=== PATIENT | male | born 2000 | race Two or more races ===

== ENCOUNTER 2022-04-27 17:13 | Emergency (ER) | payer MEDICAID ==
[~2022-04-27] VITALS: Ht 177.8 cm; Wt 56.2 kg
--- NOTE | 2022-04-27 17:37 | NUR ---
TO ER BED 15, BIB RA 878,[facility] DETAINED HIM FOR RUNNING IN & OUT OF TRAFFIC,DENIES USING DRUGS, AAO2, BREATHING EVEN AND NON LABORED, AWAITING MD ORDERS
--- NOTE | 2022-04-27 18:10 | NUR ---
URINE COLLECTED AND SENT TO LAB
[2022-04-27 18:14] LABS: BASOPHILS % (AUTO) 0.3 % (0.0-2.0); HEMATOCRIT 40 % (39-51); HEMOGLOBIN 13.6 g/dL (13.5-17.5); LYMPHOCYTES # (AUTO) 1.5 K/uL (0.8-4.8); LYMPHOCYTES % (AUTO) 16.8 % (20.0-44.0); MEAN CORPUSCULAR HGB CONC 34 g/dl (31.0-36.0); MEAN CORPUSCULAR VOLUME 85 fL (80-96); MONOCYTES # (AUTO) 0.7 K/uL (0.1-1.30); MONOCYTES % (AUTO) 8.1 % (2.0-12.0); NEUTROPHILS # (AUTO) 6.8 K/uL (1.8-8.9); NEUTROPHILS % (AUTO) 74.8 % (43.0-81.0); PLATELET COUNT (AUTO) 337 K/uL (150-450); RED BLOOD CELL COUNT(AUTO) 4.67 MIL/uL (4.5-6.0); WHITE BLOOD COUNT (AUTO) 9.1 K/uL (4.3-11.0)
[2022-04-27 18:23] LABS: CALCIUM, SERUM 9.7 mg/dL (8.5-10.1); CARBON DIOXIDE 25 mmol/L (21-32); CHLORIDE 105 mmol/L (98-107); CREATININE 1.3 mg/dL (0.6-1.3); GLUCOSE 83 mg/dL (74-106); POTASSIUM 3.3 mmol/L (3.5-5.1); SODIUM SERUM 145 mmol/L (136-145); UREA NITROGEN, BLOOD 19 mg/dL (7-18)
[2022-04-27 18:29] LABS: ALANINE AMINOTRANSFERASE 33 U/L (12-78); ALCOHOL, BLOOD < 3 mg/dL (0-0); ALKALINE PHOSPHATASE 51 U/L (46-116); ASPARTATE AMINOTRANSFERASE 39 U/L (15-37); BILIRUBIN,DIRECT 0.4 mg/dL (0.0-0.2); TOTAL PROTEIN, SERUM 8.2 g/dL (6.4-8.2)
[2022-04-27 18:30] LABS: ACETAMINOPHEN 0 ug/ml (10-30)
[2022-04-27] MEDS ORDERED: POTASSIUM CHLORIDE 20 MEQ TAB.PRT.SR PO ONE ×2 (19:00→22:02)
--- NOTE | 2022-04-27 19:20 | NUR ---
covid swab collected and sent to lab.
[2022-04-27 19:23] LABS: BILIRUBIN,URINE MODERATE (NEGATIVE); COLOR,URINE YELLOW (YELLOW); LEUKOCYTE ESTERASE ,URINE NEGATIVE (NEGATIVE); NITRITE, URINE NEGATIVE (NEGATIVE); PROTEIN,URINE 30 mg/dl (NEGATIVE); UGLUCOSE NEGATIVE (NEGATIVE)
[2022-04-27 19:29] LABS: BACTERIA,URINE 1+ /HPF (None Seen); MUCUS,URINE Moderate /LPF (None Seen); RBC,URINE 0-2 /HPF (0-2); WBC,URINE 0-2 /HPF (0-3)
[2022-04-27] MEDS ORDERED: OLANZAPINE 10 MG VIAL IM ONE (22:59)
[2022-04-27] MEDS: OLANZAPINE 10 MG VIAL IM SCH (23:08)
--- NOTE | 2022-04-28 04:08 | NUR ---
MARY MOTHER [phone]
[2022-04-28] MEDS ORDERED: OLANZAPINE 10 MG VIAL IM ONE ×2 (11:00→18:08)
[2022-04-28] MEDS: OLANZAPINE 10 MG VIAL IM SCH ×2 (11:17→18:15)
--- NOTE | 2022-04-29 06:00 | NUR ---
PATIENT IN BEDSIDE, VSS, NO ACUTE DISTRESS NOTED. SITTER AT BEDSIDE. WILL CONTINUE TO MONITOR.
--- NOTE | 2022-04-29 08:49 | NUR ---
meal tray provided. pt verbally responsive. vitals stable. sitter at bedside.
[2022-04-29] MEDS ORDERED: OLANZAPINE 10 MG VIAL IM ONE ×2 (09:22→17:30)
[2022-04-29] MEDS: OLANZAPINE 10 MG VIAL IM SCH ×2 (09:28→17:35)
--- NOTE | 2022-04-29 23:32 | NUR ---
PATIENT IN BED RESTING, SITTER AT BEDSIDE. PT VSS, NO ACUTE DISTRESS NOTED. WILL CONTINUE TO MONITOR.
[2022-04-30] MEDS ORDERED: OLANZAPINE 10 MG VIAL IM ONE (10:37)
[2022-04-30] MEDS: OLANZAPINE 10 MG VIAL IM SCH (10:38)
--- NOTE | 2022-04-30 10:54 | NUR ---
REFERRALS: REFERRALS SENT TO [facility] ([phone]), (F:[phone]). [facility] ([phone]), (F:[phone]) [facility] (P:[phone]) (F:[phone])
--- NOTE | 2022-04-30 11:54 | NUR ---
patient is accepted at [facility] spoke to Rocio REEVES call for report after 3pm [phone] Leary Accepting MD. [facility] unit room 253A.
--- NOTE | 2022-04-30 12:28 | NUR ---
[facility] CALLED FOR TRANSPORT ASKED FOR ETA OF 1500.
--- NOTE | 2022-04-30 14:55 | NUR ---
report given to dario kenyon at [facility]. awaiting transport ambulance.
[2022-04-30 15:50] VITALS: BP 119/77
--- NOTE | 2022-04-30 15:56 | NUR ---
Patient picked up by private ambulance going to [facility] psych unit in no distress, on [id number].
== END 2022-04-30 15:56 ==
LOC: ER 17:18
DX: F23 Brief psychotic disorder (principal); F12.20 Cannabis dependence, uncomplicated; Z59.00 Homelessness unspecified; Z20.822 Contact with and (suspected) exposure to COVID-19
CPT/HCPCS: 36415; 80048-TC; 80076-TC; 81001; 85025-TC; C9803; G0480; J3490